=== PATIENT | male | born 1990 | race Caucasian/White ===

== ENCOUNTER 2017-11-17 07:33 | Emergency (ER) | payer BC ==
[~2017-11-17] VITALS: Ht 188 cm; Wt 175.0 kg
[~2017-11-17 07:33] MED LIST: PERCOCET 5/31 TABLET PO; PROTONIX IV40 MG IV; TYLENOL REGULA325 MG PO; ULTRAM50 MG PO
[2017-11-17 08:17] LABS: HEMATOCRIT 44.1 % (38.0-50.0); HEMOGLOBIN 15.3 G/DL (12.5-16.6); MCH 30.3 PG (29.0-34.0); MCHC 34.7 G/DL (30.0-36.0); MCV 87.3 FL (86-99); PLATELET COUNT 166 K/uL (156-360); RBC DIS.WIDTH-CV 13.1 % (11.8-14.6); RBC DIS.WIDTH-SD 41.4 % (39-53); RED BLOOD COUNT 5.05 M/uL (4.00-5.50); WHITE BLOOD COUNT 7.9 K/uL (4.1-10.2)
[2017-11-17 08:25] LABS: ALBUMIN 4.3 g/dL (3.2-4.8); CHLORIDE 107 mEq/L (99-109); POTASSIUM 3.3 mEq/L (3.7-5.4); SODIUM 145 mEq/L (136-147)
[2017-11-17 08:27] LABS: GLUCOSE 116 mg/dL (70-99)
[2017-11-17 08:28] LABS: TOTAL PROTEIN 6.9 g/dL (6.4-8.3)
[2017-11-17 08:29] LABS: TOTAL BILIRUBIN 0.7 mg/dL (0.0-1.0)
[2017-11-17 08:31] LABS: ALKALINE PHOSPHATASE 100 IU/L (3-129); CREATININE 0.8 mg/dL (0.6-1.3); GFR ESTIMATE (CALCULATED) > 59 mL/min/ (58.99-99999)
[2017-11-17 08:32] LABS: UREA NITROGEN (BUN) 7 mg/dL (9-23)
[2017-11-17 08:33] LABS: AST (GOT) 27 IU/L (2-34)
[2017-11-17 08:34] LABS: ALT (GPT) 56 IU/L (3-49)
[2017-11-17 09:50] LABS: APPEARANCE CLEAR ((CLEAR)); BILIRUBIN NEGATIVE; BLOOD NEGATIVE; COLOR AMBER ((YELLOW)); GLUCOSE (STRIP) NEGATIVE; KETONES 20; LEUKOCYTES NEGATIVE; NITRITE NEGATIVE; PROTEIN (STRIP) 30; UCUL ADDED? NO; UROBILINOGEN 0.2 MG/DL (0.2-1.0)
[2017-11-17] MEDS ORDERED: ULTRAM50 MG PO (10:16)
[2017-11-17] MEDS ORDERED: MOTRIN800 MG PO (10:16)
[2017-11-17 10:28] VITALS: BP 169/99
== END 2017-11-17 10:28 | disposition home or self-care (01) ==
LOC: EME 07:33
PROVIDERS: Nurse Practitioner Family
DX: R10.31 Right lower quadrant pain (principal); M54.9 Dorsalgia, unspecified; R11.0 Nausea; J45.909 Unspecified asthma, uncomplicated; Z87.891 Personal history of nicotine dependence; Z98.84 Bariatric surgery status
CPT/HCPCS: 74177; 80053; 81003; 85027; 99281; 99284; J1885; J2270; J2405